=== PATIENT | male | born 1995 | race Caucasian/White ===

== ENCOUNTER 2016-11-02 19:27 | Emergency (ER) | payer OTHER ==
[~2016-11-02] VITALS: Ht 185.4 cm; Wt 77.0 kg
[2016-11-02 19:36] VITALS: TEMP 37; Ht 185.4 cm; Wt 77.0 kg
[2016-11-02 19:39] VITALS: O2SAT 99
[2016-11-02 20:46] LABS: BUN/CREATININE RATIO 8.5 (10-20); CALCIUM 8.7 mg/dl (8.5-10.1); CREATININE 0.97 mg/dl (0.60-1.40); POTASSIUM 3.7 mmol/L (3.5-5.1)
--- NOTE | 2016-11-02 22:17 | EMERGENCY ROOM VISIT NOTE ---
ED Visit Note First contact with patient: 19:37 CHIEF COMPLAINT: Alcohol overdose HISTORY OF PRESENT ILLNESS: This 20-year-old male patient presents to the emergency department via ambulance for evaluation of an alcohol overdose. He is complaining of scrapes to his knees which he states he got from tripping and falling on the pavement. He denies any other injuries, denies hitting his head , denies loss of consciousness. He denies any chest pain, shortness of breath, abdominal pain, nausea or vomiting, or recent illness. REVIEW OF SYSTEMS: Once the patient was able to reliably answer questions a review of systems was performed with positives and pertinent negatives listed in the history of present illness. All other systems were reviewed and are negative. ALLERGIES: No known allergies MEDICATIONS: Patient denies any prescribed medications PMH: No significant past medical history SOCIAL HISTORY: [employer] student, lives on campus. Admits to tobacco use and alcohol use, denies recreational drug use. PHYSICAL EXAM: VITALS: Vitals are noted on the nurse's note and reviewed by myself. Vital signs stable. GENERAL: Alert, pleasant and cooperative, in no acute distress, non-diaphoretic , well-developed well-nourished. The patient is visibly intoxicated with the smell of alcohol on his breath. SKIN: Superficial abrasions noted to the anterior knees bilaterally, no active bleeding, no deep lacerations, no foreign body or debris noted. The skin was otherwise without obvious lacerations or rashes. There is no tenting of the skin. Capillary reflex less than 2 seconds. HEENT: Normocephalic, atraumatic. PERRLA. EOMI. Conjunctiva with mild injection without icterus. Tympanic membranes without erythema or effusion bilaterally no hemotympanum. External auditory canals are clear. Nares patent bilaterally. No epistaxis. Oropharynx without erythema or exudate. Uvula midline. Oral mucosal moist. No lymphadenopathy. Neck is supple without cervical spine tenderness. HEART: Tachycardic. Regular rhythm without murmurs gallops or rubs. Peripheral pulses 2+. LUNGS: Clear to auscultation bilaterally without wheezes, rales or rhonchi. ABDOMEN: Positive bowel sounds x 4. Normal tympanic percussion. Soft, nontender, without masses or organomegaly. MUSCULOSKELETAL: Gross motor function of the upper and lower extremities intact. The patient has a staggering gait. NEUROLOGIC: The patient is visibly intoxicated. He is oriented to person and place. He has no focal deficits. Coordination and gait are clumsy. EMERGENCY DEPARTMENT COURSE: I examined the patient. Conservative care measures were instituted. The patient was alert and talkative, but slurring his words, clumsy gait, and poor coordination on neuro exam. He was placed in a prone position. Aspiration precautions were instituted. The patient was placed on tow boat captain and watched during the patient's stay. The patient' s blood alcohol level was 363. The patient should be able to be discharged with sober friends or family after 4am, or alone after 9am. Patient signed out to Rachel Bryant PA-C, at 2300, pending discharge in the am. Current/Historical Medications No Active Prescriptions or Reported Meds Allergies Coded Allergies: No Known Allergies (Unverified , 11/02/16) Vital Signs Date Time Temp Pulse Resp B/P (MAP) Pulse Ox O2 Delivery O2 Flow Rate FiO2 11/02/16 22:00 106 18 129/76 97 Room Air 11/02/16 19:39 132 11/02/16 19:39 99 Room Air 11/02/16 19:36 37.0 135 20 155/99 99 Room Air Laboratory Results 11/02/16 20:17 Test 11/02/16 20:17 Anion Gap 9.0 mmol/L (3-11) Est Creatinine Clear Calc Drug Dose 132.3 ml/min Estimated GFR () 129.7 Estimated GFR (Non- 111.9 BUN/Creatinine Ratio 8.5 (10-20) Bedside Glucose 116 mg/dl (70-99) Calcium Level 8.7 mg/dl (8.5-10.1) Ethyl Alcohol mg/dL 363.0 mg/dl (0-3) Departure Information Impression Primary Impression: Alcohol use with intoxication Additional Impression: Abrasion of knee, bilateral Prescriptions No Active Prescriptions or Reported Meds Referrals No Doctor, Assigned (PCP) [facility] Patient Instructions My [facility] Additional Instructions Avoid such excessive alcohol use in the future. Drink plenty of fluids to keep well-hydrated. Keep the abrasions on your knees clean and dry. Keep covered with antibiotic ointment and a band-aid until well healed. You may take Tylenol or Ibuprofen as needed for pain. These medications are available [id number]. Take as directed. Follow up with family doctor as needed. Problem Qualifiers
[2016-11-03 09:55] VITALS: BP 130/77; PULSE 72; O2SAT 95
--- NOTE | 2016-11-03 16:58 | EMERGENCY ROOM VISIT NOTE ---
ED Visit Note First contact with patient: 08:15 Patient was signed out to me by Manny LINDSAY. Please see that dictation for full history and physical. Patient remained stable while in the ED this morning. He did awake on his own. He states he does not remember much about last evening. He did drink a significant amount of alcohol. He has no complaints this morning. He denies any new areas of discomfort. No nausea. He has not vomited this morning. He was requesting to be discharged. He was provided his phone, and he was able to reach sober friends. They did come to the ED to take him home. Alcohol intoxication instructions were provided. He will register for [facility]. Avoid alcohol today. Maintain hydration. Tylenol every 6 hours as needed for mild headache or discomfort. Return to the ED for any other concerns. Current/Historical Medications No Active Prescriptions or Reported Meds Allergies Coded Allergies: No Known Allergies (Unverified , 11/02/16) Vital Signs Date Time Temp Pulse Resp B/P (MAP) Pulse Ox O2 Delivery O2 Flow Rate FiO2 11/03/16 09:55 72 17 130/77 95 11/03/16 09:27 72 17 130/77 95 Room Air 11/03/16 08:47 73 16 118/52 95 Room Air 11/03/16 07:40 68 16 120/50 94 Room Air 11/03/16 06:30 88 18 110/62 98 Room Air 11/03/16 05:56 63 11/03/16 04:58 65 18 113/57 96 Room Air 11/03/16 02:57 69 18 128/78 96 Room Air 11/03/16 02:37 74 11/03/16 01:29 80 18 119/77 99 Room Air 11/03/16 01:06 80 18 128/78 98 Room Air 11/02/16 23:30 81 18 129/77 100 Room Air 11/02/16 22:00 106 18 129/76 97 Room Air 11/02/16 19:39 132 11/02/16 19:39 99 Room Air 11/02/16 19:36 37.0 135 20 155/99 99 Room Air Laboratory Results 11/02/16 20:17 Test 11/02/16 20:17 Anion Gap 9.0 mmol/L (3-11) Est Creatinine Clear Calc Drug Dose 132.3 ml/min Estimated GFR () 129.7 Estimated GFR (Non- 111.9 BUN/Creatinine Ratio 8.5 (10-20) Bedside Glucose 116 mg/dl (70-99) Calcium Level 8.7 mg/dl (8.5-10.1) Ethyl Alcohol mg/dL 363.0 mg/dl (0-3) Departure Information Impression Primary Impression: Alcohol use with intoxication Additional Impression: Abrasion of knee, bilateral Dispostion Home / Self-Care Condition GOOD Prescriptions No Active Prescriptions or Reported Meds Referrals No Doctor, Assigned (PCP) [facility] [address] Forms HOME CARE DOCUMENTATION FORM, IMPORTANT VISIT INFORMATION Patient Instructions My [facility] [place] [employer] Additional Instructions Avoid such excessive alcohol use in the future. Drink plenty of fluids to keep well-hydrated. Keep the abrasions on your knees clean and dry. Keep covered with antibiotic ointment and a band-aid until well healed. You may take Tylenol or Ibuprofen as needed for pain. These medications are available [id number]. Take as directed. Follow up with family doctor as needed. Problem Qualifiers
== END 2016-11-03 09:55 | disposition home or self-care (01) ==
LOC: EDBD 19:27 → C.EDA 19:29
DX: F10.129 Alcohol abuse with intoxication, unspecified (principal); Y90.8 Blood alcohol level of 240 mg/100 ml or more; S80.211A Abrasion, right knee, initial encounter; S80.212A Abrasion, left knee, initial encounter; X58.XXXA Exposure to other specified factors, initial encounter